=== PATIENT | male | born 1960 | race Caucasian/White ===

== ENCOUNTER → 2018-11-27 | Outpatient (REF) ==
--- NOTE | 2018-11-27 18:40 | REP ---
LEFT HIP, TWO VIEWS: Two views of the left hip are performed. There is no acute fracture or dislocation is seen. There is mild joint space narrowing, subchondral sclerosis and spurring. IMPRESSION: Mild degenerative changes. Electronically Signed by Juvencio Hernandez MD 11/28/2018 10:52 A
--- NOTE | 2018-11-28 07:05 | REP ---
LUMBOSACRAL SPINE, THREE VIEWS: Three AP and lateral views of the lumbosacral spine were performed. There is no compression fracture. There are 6 lumbar type vertebral bodies present. For the purposes of this report I will refer to these as L1 through L6. There is mild retrolisthesis of L3 on L4 and L5 on L6. There is mild reversal of the normal lumbar lordosis. There is moderate curvature of the lumbar spine convex to the left. Large bridging osteophyte are noted on the left at T12-L1 bilaterally at L1-2, on the right at L2-3 and L4-5 and on the left L5-L6. There is a rotatory component to the scoliosis. Moderate disc space narrowing at all levels with mild subchondral sclerosis. Sclerosis and spurring is seen at the posterior facets of L4-5, L5-L6 and L6-S1. The L6-S1 disc space is relatively well preserved. Posterior elements appear intact. IMPRESSION: Significant diffuse degenerative changes as discussed above with no compression fracture. There is reversal of normal lumbar lordosis. There is moderate left rotatory lumbar scoliosis. 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 Electronically Signed by Juvencio Hernandez MD 11/28/2018 11:37 A
== END ==
LOC: M SMT 15:00
PROVIDERS: ATTEND Internal Medicine
DX: Z02.71 Encounter for disability determination (principal)